=== PATIENT | female | born 1960 | race Caucasian/White ===

== ENCOUNTER → 2017-06-28 | Outpatient (CLI) | payer OTHER ==
[~2017-06-28] MED LIST: GADAVIST IV PRN
--- NOTE | 2017-07-01 13:09 | MAMMOGRAPHY REPORT ---
BREAST MRI OF BOTH BREASTS : 06/28/2017 CLINICAL HISTORY: Asymmetry seen within the left breast at an outside institution, for which no sonog raphic correlate was found. Family history of breast cancer. COMPARISON: Outside mammograms dated 03/28/2017, 02/11/2017, 02/07/2016, 11/26/2014, 11/25/2013, 11/24/2012 from [facility]. Technique: The patient was placed prone in a dedicated breast imaging coil. Precontrast axial T1-ana maría ghted, axial T2-weighted fat saturation, and axial T1-weighted fat saturation images were obtained. After the administration of 6 mL of Gadavist IV contrast, sequential T1-weighted fat saturation image s were obtained. Subtraction images were obtained of the dynamic contrast enhanced sequences, and 3- D reformations were performed. The [employer]ular software was used for kinetic analysis. Findings: There is minimal background parenchymal enhancement involving bilateral breasts. There are no suspic ious enhancing masses or areas of abnormal non-mass enhancement seen within either breast. Specifica lly, there is no abnormal enhancement in the left inferior breast in the region of the asymmetry seen on the outside mammograms. Given the lack of corresponding MRI abnormality, the finding likely repr esents normal fibroglandular tissue. There is no evidence of axillary adenopathy. The chest wall structures are negative. Visualized ext ramammary soft tissues are grossly unremarkable. IMPRESSION: ACR BI-RADS CATEGORY 2: BENIGN No MRI evidence of malignancy in either breast. No MRI abnormality in the region of the left breast mammographic asymmetry. Given the lack of corresponding MRI abnormality, the asymmetry is benign and felt to represent normal fibroglandular tissue. Return to annual mammogram screening schedule is rec ommended; tomosynthesis images would be helpful given the dense breast parenchyma mammographically. Bekah Shafer M.D. 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
== END | disposition home or self-care (01) ==
LOC: C.MRI 12:57
PROVIDERS: ATTEND Surgery
DX: R92.8 Other abnormal and inconclusive findings on diagnostic imaging of breast (principal); R92.2 Inconclusive mammogram; Z80.3 Family history of malignant neoplasm of breast; N64.89 Other specified disorders of breast